=== PATIENT | male | born 1965 | race Caucasian/White ===

== ENCOUNTER 2019-05-25 06:33 | Emergency (ER) | payer BC ==
[~2019-05-25] VITALS: Ht 175.3 cm; Wt 76.2 kg
[2019-05-25] MEDS ORDERED: COZAAR 25 MG TA25 M1 PO (06:43)
[2019-05-25] MEDS ORDERED: ULTRAM 50MG TAB50 MG PO (07:25)
[2019-05-25] MEDS ORDERED: AUGMENTIN 875-1 EACH PO (07:25)
[2019-05-25 07:37] VITALS: BP 139/77
== END 2019-05-25 07:38 | disposition home or self-care (01) ==
LOC: ER 06:33
DX: S61.451A Open bite of right hand, initial encounter (principal); S51.851A Open bite of right forearm, initial encounter; L08.9 Local infection of the skin and subcutaneous tissue, unspecified; F17.210 Nicotine dependence, cigarettes, uncomplicated; W54.0XXA Bitten by dog, initial encounter; Y93.89 Activity, other specified; Y92.89 Other specified places as the place of occurrence of the external cause; Y99.8 Other external cause status